=== PATIENT | female | born 2000 | race Caucasian/White ===

== ENCOUNTER 2021-11-09 11:00 | Emergency (ER) | payer OTHER ==
[2021-11-09 11:15] VITALS: BP 109/64; PULSE 63; TEMP 98.1; BMI 21.0
[2021-11-09] MEDS ORDERED: IBUPROFEN 400 MG TABLET (FP) PO ONE ×2 (12:22→12:43)
[2021-11-09 12:33] LABS: EPI CELLS >36 /uL (0-25.1); HYALINE CASTS 1 /uL (0-3.1); URINE APPEARANCE CLEAR; URINE BACTERIA 145 /uL (0-1359); URINE BILIRUBIN NEGATIVE (NEGATIVE); URINE COLOR YELLOW; URINE GLUCOSE (UA) NEGATIVE (NEGATIVE); URINE KETONE NEGATIVE (NEGATIVE); URINE LEUK ESTERASE 1+ (NEGATIVE); URINE NITRITE NEGATIVE (NEGATIVE); URINE PROTEIN NEGATIVE (NEGATIVE); URINE RBC 16 /uL (0-23.9); URINE UROBILINOGEN 0.2 mg/dL (0.2-1.0); URINE WBC 21 /uL (0-25.8)
== END 2021-11-09 12:50 | disposition home or self-care (01) ==
LOC: JER 11:00
DX: N91.2 Amenorrhea, unspecified (principal)
CPT/HCPCS: 81003; 84703; 87086; 99283-25

== ENCOUNTER 2022-06-27 21:55 | Emergency (ER) | payer OTHER ==
[2022-06-27 22:14] VITALS: BP 117/82; PULSE 61; RESP 20; TEMP 98.4; BMI 20.7
[2022-06-27] MEDS ORDERED: ACETAMINOPHEN 325 MG TABLET (FP) PO ONE (23:27)
[2022-06-27] MEDS ORDERED: ACETAMINOPHEN 325 MG TABLET (FP) ONE (23:33)
[2022-06-27 23:53] LABS: URINE APPEARANCE CLOUDY; URINE BILIRUBIN NEGATIVE (NEGATIVE); URINE COLOR YELLOW; URINE GLUCOSE (UA) NEGATIVE (NEGATIVE); URINE KETONE NEGATIVE (NEGATIVE); URINE LEUK ESTERASE NEGATIVE (NEGATIVE); URINE NITRITE NEGATIVE (NEGATIVE); URINE PROTEIN NEGATIVE (NEGATIVE)
== END 2022-06-28 01:32 | disposition home or self-care (01) ==
LOC: JER 21:55
DX: R05.1 Acute cough (principal); R10.11 Right upper quadrant pain
CPT/HCPCS: 0241U-QW; 36415; 76830-TC; 81003; 84703; 87086; 87491; 87591; 99284-25

== ENCOUNTER 2022-09-10 19:04 | Emergency (ER) | payer OTHER ==
[2022-09-10 19:24] VITALS: BP 101/64; PULSE 79; RESP 20; TEMP 98.1; BMI 17.9
[2022-09-10 20:11] LABS: EPI CELLS 20 /uL (0-25.1); HCG,QUALITATIVE URINE Negative; HYALINE CASTS 1 /uL (0-3.1); PH,URINE 8.5 (5.0-8.0); URINE APPEARANCE CLOUDY; URINE BACTERIA 4964 /uL (0-1359); URINE BILIRUBIN NEGATIVE (NEGATIVE); URINE COLOR YELLOW; URINE GLUCOSE (UA) NEGATIVE (NEGATIVE); URINE KETONE NEGATIVE (NEGATIVE); URINE LEUK ESTERASE 2+ (NEGATIVE); URINE NITRITE NEGATIVE (NEGATIVE); URINE PROTEIN 1+ (NEGATIVE); URINE RBC 277 /uL (0-23.9); URINE WBC 620 /uL (0-25.8)
== END 2022-09-10 20:53 | disposition home or self-care (01) ==
LOC: JER 19:04 → JERFT 19:04
DX: N39.0 Urinary tract infection, site not specified (principal)
CPT/HCPCS: 81003; 84703; 87086; 87186; 99283-25